=== PATIENT | female | born 1985 | race Caucasian/White ===

== ENCOUNTER 2016-07-16 12:00 | Observation (INO) | payer MEDICAID ==
[~2016-07-16 12:00] MED LIST: FERR1TAB24 PO; PREN1TAB52 PO
[2016-07-16 13:32] VITALS: BP 113/68
== END 2016-07-16 17:25 | disposition home or self-care (01) ==
LOC: 4S 12:00
PROVIDERS: ADMIT Obstetrics & Gynecology; ATTEND Obstetrics & Gynecology
DX: O42.92 Full-term premature rupture of membranes, unspecified as to length of time between rupture and onset of labor (principal); O62.9 Abnormality of forces of labor, unspecified; O26.893 Other specified pregnancy related conditions, third trimester; R10.9 Unspecified abdominal pain; Z3A.38 38 weeks gestation of pregnancy
CPT/HCPCS: 36415; 59025; 76805; 89060; G0378